=== PATIENT | male | born 1955 | race Caucasian/White ===

== ENCOUNTER 2017-08-27 12:11 | Inpatient (IN) | payer MEDICAID ==
[~2017-08-27] VITALS: Ht 182.9 cm; Wt 106.8 kg
[~2017-08-27 12:11] MED LIST: METH10OR2 PO
[2017-08-27 13:04] LABS: BASOPHILS % (AUTO) 0.3 % (0.0-2.0); EOSINOPHILS % (AUTO) 1.8 % (1.0-6.0); HEMATOCRIT 35.4 % (41-53); HEMOGLOBIN 12.1 g/dL (13.5-17.5); LYMPHOCYTES # (AUTO) 1.9 K/uL (1.0-4.8); MEAN CORPUSCULAR HEMOGLOBIN 30.2 pg (26.0-34.0); MEAN CORPUSCULAR HGB CONC 34.2 G/dL (31.0-37.0); MEAN CORPUSCULAR VOLUME 88 fL (80-100); MONOCYTES # (AUTO) 0.4 K/uL (0.1-1.0); MONOCYTES % (AUTO) 5.2 % (2.0-9.0); NEUTROPHILS # (AUTO) 5.4 K/uL (1.8-7.7); NEUTROPHILS % (AUTO) 68.7 % (40.0-70.0); PLATELET COUNT (AUTO) 159 K/uL (150-450); RED BLOOD CELL COUNT(AUTO) 4.01 MIL/uL (4.50-5.90); RED CELL DISTRIBUTION WIDTH 15.2 % (11.5-14.5); WHITE BLOOD COUNT (AUTO) 7.8 K/uL (4.5-11.0)
[2017-08-27 13:05] LABS: ANION GAP 5 mmol/L (8-16); CALCIUM, TOTAL 8.6 mg/dL (8.8-10.5); CARBON DIOXIDE 29 mmol/L (22-29); CHLORIDE 102 mmol/L (98-107); CREATININE 1.14 mg/dL (0.60-1.30); GLOMERULAR FILTR. RATE CALC > 60 mL/min (>60); POTASSIUM 3.9 mmol/L (3.5-5.1); SODIUM SERUM 136 mmol/L (136-145); UREA NITROGEN, BLOOD 19 mg/dL (7-18)
[2017-08-27 13:11] LABS: ALANINE AMINOTRANSFERASE 28 U/L (12-78); ASPARTATE AMINOTRANSFERASE 28 U/L (15-37); BILIRUBIN,TOTAL 0.3 mg/dL (0.1-1.0); TOTAL PROTEIN, SERUM 7.6 g/dL (6.4-8.2)
[2017-08-27 13:13] LABS: LACTIC ACID 1.8 mmol/L (0.4-2.0)
[2017-08-27] MEDS ORDERED: BUPIVACAINE HCL/PF 0.25% 10 ML VIAL INJ ONE (13:30)
[2017-08-27] MEDS ORDERED: VANCOMYCIN HCL 1 GM/D5% WATER 200 ML IV ONE ×2 (13:30→22:00)
[2017-08-27] MEDS ORDERED: ACETAMINOPHEN 325 MG TABLET PO PRN ×2 (13:30→15:15)
[2017-08-27] MEDS ORDERED: ONDANSETRON HCL 4 MG/2 ML VIAL IVP PRN ×2 (13:30→15:15)
[2017-08-27] MEDS ORDERED: POVIDONE-IODINE 10% 15 ML SOLUTION UD TP ONE (13:30)
[2017-08-27 14:40] VITALS: BP 141/61
[2017-08-27] MEDS ORDERED: BISACODYL 10 MG RECTAL RECTAL SUPPOSITORY PR PRN (15:15)
[2017-08-27] MEDS ORDERED: MAGNESIUM HYDROXIDE SUSPENSION 30 ML UDCUP PO PRN (15:15)
[2017-08-27] MEDS ORDERED: MORPHINE SULFATE 2 MG/ML SYRINGE IVP PRN (15:15)
[2017-08-27] MEDS: HEPARIN SODIUM,PORCINE 5,000 UNITS/ML VIAL SQ SCH (15:49)
[2017-08-27 19:51] VITALS: BP 138/74
[2017-08-27] MEDS: ZOLPIDEM TARTRATE 5 MG TABLET PO PRN (19:58)
[2017-08-27] MEDS: DOCUSATE SODIUM 100 MG CAPSULE PO SCH (22:19)
[2017-08-27 23:40] VITALS: BP 136/58
[2017-08-28] MEDS: HEPARIN SODIUM,PORCINE 5,000 UNITS/ML VIAL SQ SCH ×4 (00:13→23:23)
[2017-08-28 06:06] VITALS: BP 129/70
[2017-08-28 06:21] LABS: ANION GAP 5 mmol/L (8-16); CALCIUM, TOTAL 8.4 mg/dL (8.8-10.5); CARBON DIOXIDE 31 mmol/L (22-29); CHLORIDE 104 mmol/L (98-107); CREATININE 0.97 mg/dL (0.60-1.30); GLOMERULAR FILTR. RATE CALC > 60 mL/min (>60); SODIUM SERUM 140 mmol/L (136-145); UREA NITROGEN, BLOOD 18 mg/dL (7-18)
[2017-08-28 07:32] VITALS: BP 126/67
[2017-08-28] MEDS ORDERED: VANCOMYCIN HCL 1.25 GM in DEXTROSE 5%-WATER 250 ML IV SCH (08:00)
[2017-08-28] MEDS: VANCOMYCIN HCL 1.5 GM in DEXTROSE 5%-WATER 250 ML IV SCH ×2 (08:22→20:37)
[2017-08-28] MEDS: DOCUSATE SODIUM 100 MG CAPSULE PO SCH ×2 (08:22→20:37)
[2017-08-28] MEDS: PANTOPRAZOLE SODIUM 40 MG DR TABLET PO SCH (08:26)
[2017-08-28 11:34] VITALS: BP 120/66
[2017-08-28 16:01] VITALS: BP 134/68
[2017-08-28 19:10] VITALS: BP 131/76
[2017-08-28] MEDS: HYDROCODONE/ACETAMINOPHEN 5-325 MG TABLET PO PRN (20:38)
[2017-08-28 23:08] VITALS: BP 128/70
[2017-08-28] MEDS: ZOLPIDEM TARTRATE 5 MG TABLET PO PRN (23:36)
[2017-08-29 04:00] VITALS: BP 125/70
[2017-08-29 07:04] LABS: ANION GAP 4 mmol/L (8-16); CALCIUM, TOTAL 8.6 mg/dL (8.8-10.5); CARBON DIOXIDE 31 mmol/L (22-29); CHLORIDE 105 mmol/L (98-107); CREATININE 1.01 mg/dL (0.60-1.30); GLOMERULAR FILTR. RATE CALC > 60 mL/min (>60); POTASSIUM 4.8 mmol/L (3.5-5.1); SODIUM SERUM 140 mmol/L (136-145); UREA NITROGEN, BLOOD 18 mg/dL (7-18)
[2017-08-29 08:03] VITALS: BP 128/69
[2017-08-29] MEDS: HEPARIN SODIUM,PORCINE 5,000 UNITS/ML VIAL SQ SCH ×3 (08:19→23:11)
[2017-08-29] MEDS: VANCOMYCIN HCL 1.5 GM in DEXTROSE 5%-WATER 250 ML IV SCH ×2 (08:19→20:04)
[2017-08-29] MEDS: DOCUSATE SODIUM 100 MG CAPSULE PO SCH ×2 (08:20→20:04)
[2017-08-29] MEDS: PANTOPRAZOLE SODIUM 40 MG DR TABLET PO SCH (08:20)
[2017-08-29 12:05] VITALS: BP 128/79
[2017-08-29 15:00] VITALS: BP 124/72
[2017-08-29] MEDS: HYDROCODONE/ACETAMINOPHEN 5-325 MG TABLET PO PRN ×2 (15:54→21:10)
[2017-08-29 20:03] VITALS: BP 130/71
[2017-08-29] MEDS: ZOLPIDEM TARTRATE 5 MG TABLET PO PRN (21:10)
[2017-08-29 23:15] VITALS: BP 136/68
[2017-08-30] MEDS: HYDROCODONE/ACETAMINOPHEN 5-325 MG TABLET PO PRN ×2 (01:16→19:45)
[2017-08-30 05:25] VITALS: BP 130/71
[2017-08-30 06:03] LABS: ANION GAP 4 mmol/L (8-16); CALCIUM, TOTAL 8.8 mg/dL (8.8-10.5); CARBON DIOXIDE 31 mmol/L (22-29); CHLORIDE 104 mmol/L (98-107); CREATININE 1.05 mg/dL (0.60-1.30); GLOMERULAR FILTR. RATE CALC > 60 mL/min (>60); POTASSIUM 4.5 mmol/L (3.5-5.1); SODIUM SERUM 139 mmol/L (136-145); UREA NITROGEN, BLOOD 18 mg/dL (7-18)
[2017-08-30 07:38] VITALS: BP 127/71
[2017-08-30] MEDS: HEPARIN SODIUM,PORCINE 5,000 UNITS/ML VIAL SQ SCH ×3 (08:12→23:35)
[2017-08-30] MEDS: VANCOMYCIN HCL 1.5 GM in DEXTROSE 5%-WATER 250 ML IV SCH ×2 (08:12→19:46)
[2017-08-30] MEDS: PANTOPRAZOLE SODIUM 40 MG DR TABLET PO SCH (08:13)
[2017-08-30] MEDS: DOCUSATE SODIUM 100 MG CAPSULE PO SCH ×2 (08:13→19:45)
[2017-08-30 11:04] VITALS: BP 121/64
[2017-08-30 19:40] VITALS: BP 111/62
[2017-08-30] MEDS: ZOLPIDEM TARTRATE 5 MG TABLET PO PRN (21:37)
[2017-08-30 23:04] VITALS: BP 129/69
[2017-08-31 04:00] VITALS: BP 130/63
[2017-08-31] MEDS: HYDROCODONE/ACETAMINOPHEN 5-325 MG TABLET PO PRN ×2 (04:10→20:20)
[2017-08-31 06:57] LABS: BASOPHILS # (AUTO) 0.02 K/uL (0.00-0.20); BASOPHILS % (AUTO) 0.3 % (0.0-2.0); EOSINOPHILS # (AUTO) 0.18 K/uL (0.00-0.70); EOSINOPHILS % (AUTO) 2.75 % (1.0-6.0); HEMATOCRIT 35.9 % (41-53); HEMOGLOBIN 11.8 g/dL (13.5-17.5); LYMPHOCYTES # (AUTO) 2.1 K/uL (1.0-4.8); LYMPHOCYTES % (AUTO) 32.7 % (22.0-44.0); MEAN CORPUSCULAR HEMOGLOBIN 29.8 pg (26.0-34.0); MEAN CORPUSCULAR HGB CONC 32.9 G/dL (31.0-37.0); MEAN CORPUSCULAR VOLUME 91 fL (80-100); MONOCYTES # (AUTO) 0.5 K/uL (0.1-1.0); MONOCYTES % (AUTO) 6.8 % (2.0-9.0); NEUTROPHILS # (AUTO) 3.8 K/uL (1.8-7.7); NEUTROPHILS % (AUTO) 57.4 % (40.0-70.0); PLATELET COUNT (AUTO) 141 K/uL (150-450); RED BLOOD CELL COUNT(AUTO) 3.96 MIL/uL (4.50-5.90); RED CELL DISTRIBUTION WIDTH 15.1 % (11.5-14.5); WHITE BLOOD COUNT (AUTO) 6.6 K/uL (4.5-11.0)
[2017-08-31 07:02] VITALS: BP 110/74
[2017-08-31 07:07] LABS: ANION GAP 3 mmol/L (8-16); CARBON DIOXIDE 33 mmol/L (22-29); CHLORIDE 101 mmol/L (98-107); CREATININE 1.17 mg/dL (0.60-1.30); GLOMERULAR FILTR. RATE CALC > 60 mL/min (>60); POTASSIUM 4.3 mmol/L (3.5-5.1); SODIUM SERUM 137 mmol/L (136-145); UREA NITROGEN, BLOOD 20 mg/dL (7-18)
[2017-08-31] MEDS: PANTOPRAZOLE SODIUM 40 MG DR TABLET PO SCH (09:11)
[2017-08-31] MEDS: VANCOMYCIN HCL 1.5 GM in DEXTROSE 5%-WATER 250 ML IV SCH ×2 (09:11→20:19)
[2017-08-31] MEDS: HEPARIN SODIUM,PORCINE 5,000 UNITS/ML VIAL SQ SCH ×3 (09:12→23:22)
[2017-08-31] MEDS: DOCUSATE SODIUM 100 MG CAPSULE PO SCH ×2 (09:12→20:19)
[2017-08-31 11:13] VITALS: BP 130/69
[2017-08-31 16:17] VITALS: BP 127/75
[2017-08-31 19:46] VITALS: BP 124/68
[2017-08-31 23:29] VITALS: BP 111/64
[2017-09-01 04:00] VITALS: BP 114/65
[2017-09-01 06:45] LABS: BASOPHILS % (AUTO) 0.4 % (0.0-2.0); EOSINOPHILS % (AUTO) 2.5 % (1.0-6.0); HEMOGLOBIN 11.4 g/dL (13.5-17.5); LYMPHOCYTES # (AUTO) 1.9 K/uL (1.0-4.8); LYMPHOCYTES % (AUTO) 37.3 % (22.0-44.0); MEAN CORPUSCULAR HEMOGLOBIN 29.9 pg (26.0-34.0); MEAN CORPUSCULAR HGB CONC 33.6 G/dL (31.0-37.0); MEAN CORPUSCULAR VOLUME 89 fL (80-100); MONOCYTES # (AUTO) 0.3 K/uL (0.1-1.0); MONOCYTES % (AUTO) 4.9 % (2.0-9.0); NEUTROPHILS # (AUTO) 2.8 K/uL (1.8-7.7); NEUTROPHILS % (AUTO) 54.9 % (40.0-70.0); PLATELET COUNT (AUTO) 141 K/uL (150-450); RED BLOOD CELL COUNT(AUTO) 3.82 MIL/uL (4.50-5.90); RED CELL DISTRIBUTION WIDTH 14.6 % (11.5-14.5); WHITE BLOOD COUNT (AUTO) 5.1 K/uL (4.5-11.0)
[2017-09-01 07:12] LABS: ANION GAP 2 mmol/L (8-16); CARBON DIOXIDE 34 mmol/L (22-29); CHLORIDE 102 mmol/L (98-107); CREATININE 1.17 mg/dL (0.60-1.30); GLOMERULAR FILTR. RATE CALC > 60 mL/min (>60); POTASSIUM 4.5 mmol/L (3.5-5.1); SODIUM SERUM 138 mmol/L (136-145); UREA NITROGEN, BLOOD 23 mg/dL (7-18)
[2017-09-01 07:34] VITALS: BP 121/66
[2017-09-01] MEDS: PANTOPRAZOLE SODIUM 40 MG DR TABLET PO SCH (08:39)
[2017-09-01] MEDS: DOCUSATE SODIUM 100 MG CAPSULE PO SCH (08:39)
[2017-09-01] MEDS: HEPARIN SODIUM,PORCINE 5,000 UNITS/ML VIAL SQ SCH (08:40)
[2017-09-01 11:12] VITALS: BP 124/62
[2017-09-01] MEDS ORDERED: CEPH250S PO (11:35)
[2017-09-01] MEDS ORDERED: SULF1TAB42 PO (11:36)
[2017-09-01] MEDS ORDERED: TRAM50TA2 PO ×2 (11:38)
== END 2017-09-01 12:52 | disposition home or self-care (01) | DRG 364 ==
LOC: EMS 12:11 → 6N 14:03
PROVIDERS: ADMIT Internal Medicine; ATTEND Internal Medicine
PROC: 0J9N0ZZ Drainage of Right Lower Leg Subcutaneous Tissue and Fascia, Open Approach (ICD-10-PCS; principal; 2017-08-27)
DX: L03.115 Cellulitis of right lower limb (principal); E44.0 Moderate protein-calorie malnutrition; L02.415 Cutaneous abscess of right lower limb; F11.10 Opioid abuse, uncomplicated; D64.9 Anemia, unspecified; R73.9 Hyperglycemia, unspecified; Z60.2 Problems related to living alone; F17.210 Nicotine dependence, cigarettes, uncomplicated; Z68.31 Body mass index [BMI] 31.0-31.9, adult
CPT/HCPCS: 83605; 87040; 96365; 99285; J1644; J3370; J3490; J7060

== ENCOUNTER 2018-05-15 23:47 | Emergency (ER) | payer MEDICAID ==
[~2018-05-15] VITALS: Ht 182.9 cm; Wt 109.1 kg
[~2018-05-15 23:47] MED LIST changes: +CEPH250S PO; +SULF1TAB42 PO; +TRAM50TA2 PO
[2018-05-16] MEDS ORDERED: CEPHALEXIN MONOHYDRATE 500 MG CAPSULE PO ONE (02:30)
[2018-05-16] MEDS ORDERED: SULFAMETHOX/TRIMETH DS 800-160 MG/TABLET PO ONE (02:30)
[2018-05-16 02:41] VITALS: BP 154/70
[2018-05-16 03:01] LABS: BASOPHILS % (AUTO) 0.1 % (0.0-2.0); EOSINOPHILS % (AUTO) 0.4 % (1.0-6.0); HEMATOCRIT 35.7 % (41-53); HEMOGLOBIN 12.2 g/dL (13.5-17.5); LYMPHOCYTES % (AUTO) 18.7 % (22.0-44.0); MEAN CORPUSCULAR HGB CONC 34.2 G/dL (31.0-37.0); MEAN CORPUSCULAR VOLUME 85 fL (80-100); MONOCYTES # (AUTO) 0.7 K/uL (0.1-1.0); MONOCYTES % (AUTO) 6.2 % (2.0-9.0); NEUTROPHILS % (AUTO) 74.6 % (40.0-70.0); PLATELET COUNT (AUTO) 124 K/uL (150-450); RED BLOOD CELL COUNT(AUTO) 4.22 MIL/uL (4.50-5.90); RED CELL DISTRIBUTION WIDTH 16.2 % (11.5-14.5)
[2018-05-16 03:11] LABS: ANION GAP 6 mmol/L (8-16); CARBON DIOXIDE 30 mmol/L (22-29); CHLORIDE 99 mmol/L (98-107); CREATININE 1.06 mg/dL (0.60-1.30); GLOMERULAR FILTR. RATE CALC > 60 mL/min (>60); GLUCOSE,RANDOM 126 mg/dL (70-110); POTASSIUM 3.6 mmol/L (3.5-5.1); SODIUM SERUM 135 mmol/L (136-145); UREA NITROGEN, BLOOD 19 mg/dL (7-18)
[2018-05-16 03:17] LABS: ALANINE AMINOTRANSFERASE 32 U/L (12-78); ALBUMIN 3.1 g/dL (3.4-5.0); ALKALINE PHOSPHATASE 109 U/L (46-116); ASPARTATE AMINOTRANSFERASE 22 U/L (15-37); BILIRUBIN,TOTAL 0.8 mg/dL (0.1-1.0)
== END 2018-05-16 03:30 | disposition home or self-care (01) ==
LOC: EMS 23:48
DX: L03.116 Cellulitis of left lower limb (principal); M79.89 Other specified soft tissue disorders; F17.210 Nicotine dependence, cigarettes, uncomplicated; F11.90 Opioid use, unspecified, uncomplicated
CPT/HCPCS: 99284

== ENCOUNTER 2018-06-08 20:04 | Emergency (ER) | payer MEDICAID ==
[~2018-06-08] VITALS: Ht 182.9 cm; Wt 109.1 kg
[~2018-06-08 20:04] MED LIST changes: -CEPH250S PO; -SULF1TAB42 PO; -TRAM50TA2 PO
[2018-06-08 22:45] LABS: BASOPHILS % (AUTO) 0.2 % (0.0-2.0); EOSINOPHILS % (AUTO) 2.8 % (1.0-6.0); HEMATOCRIT 33.4 % (41-53); HEMOGLOBIN 11.1 g/dL (13.5-17.5); LYMPHOCYTES # (AUTO) 1.8 K/uL (1.0-4.8); LYMPHOCYTES % (AUTO) 25.4 % (22.0-44.0); MEAN CORPUSCULAR HEMOGLOBIN 28.3 pg (26.0-34.0); MEAN CORPUSCULAR HGB CONC 33.2 G/dL (31.0-37.0); MEAN CORPUSCULAR VOLUME 85 fL (80-100); MONOCYTES # (AUTO) 0.7 K/uL (0.1-1.0); MONOCYTES % (AUTO) 9.7 % (2.0-9.0); NEUTROPHILS # (AUTO) 4.3 K/uL (1.8-7.7); NEUTROPHILS % (AUTO) 61.9 % (40.0-70.0); PLATELET COUNT (AUTO) 157 K/uL (150-450); RED BLOOD CELL COUNT(AUTO) 3.91 MIL/uL (4.50-5.90); RED CELL DISTRIBUTION WIDTH 15.1 % (11.5-14.5)
[2018-06-08 22:56] LABS: CALCIUM, TOTAL 8.8 mg/dL (8.8-10.5); CREATININE 1.32 mg/dL (0.60-1.30); POTASSIUM 3.7 mmol/L (3.5-5.1)
[2018-06-08 23:02] LABS: ALBUMIN 2.7 g/dL (3.4-5.0); BILIRUBIN,TOTAL 0.4 mg/dL (0.1-1.0); TOTAL PROTEIN, SERUM 7.7 g/dL (6.4-8.2)
[2018-06-09 02:17] VITALS: BP 114/76
== END 2018-06-09 02:34 | disposition home or self-care (01) ==
LOC: EMS 20:05
DX: L03.116 Cellulitis of left lower limb (principal); L03.115 Cellulitis of right lower limb; F11.10 Opioid abuse, uncomplicated; F17.210 Nicotine dependence, cigarettes, uncomplicated; Z79.899 Other long term (current) drug therapy; Z98.890 Other specified postprocedural states
CPT/HCPCS: 99284

== ENCOUNTER 2018-07-31 18:39 | Emergency (ER) | payer MEDICAID | END 2018-07-31 19:53 | disposition left against medical advice (07) | LOC: EMS 18:40 | DX: M25.569 Pain in unspecified knee (principal); Z53.21 Procedure and treatment not carried out due to patient leaving prior to being seen by health care provider ==

== ENCOUNTER 2018-08-01 14:54 | Emergency (ER) | payer MEDICAID ==
[~2018-08-01] VITALS: Ht 182.9 cm; Wt 111.4 kg
[2018-08-01 14:57] VITALS: BP 143/76
== END 2018-08-01 18:30 | disposition left against medical advice (07) ==
LOC: EMS 14:55
DX: M25.561 Pain in right knee (principal); M25.562 Pain in left knee; M79.89 Other specified soft tissue disorders; F17.210 Nicotine dependence, cigarettes, uncomplicated; F11.90 Opioid use, unspecified, uncomplicated; Z53.21 Procedure and treatment not carried out due to patient leaving prior to being seen by health care provider

== ENCOUNTER 2018-08-02 03:27 | Emergency (ER) | payer MEDICAID ==
[~2018-08-02] VITALS: Ht 185.4 cm; Wt 111.4 kg
[2018-08-02 07:12] VITALS: BP 133/78
== END 2018-08-02 07:17 | disposition home or self-care (01) ==
LOC: EMS 03:28
DX: L03.115 Cellulitis of right lower limb (principal); F17.210 Nicotine dependence, cigarettes, uncomplicated; F11.90 Opioid use, unspecified, uncomplicated; Z79.899 Other long term (current) drug therapy
CPT/HCPCS: 99283

== ENCOUNTER 2019-05-16 16:36 | Emergency (ER) | payer MEDICAID ==
[~2019-05-16] VITALS: Ht 182.9 cm; Wt 109.1 kg
[2019-05-16] MEDS ORDERED: 0.9% SODIUM CHLORIDE 10 ML SYRINGE IVP PRN (17:30)
[2019-05-16 17:44] LABS: BASOPHILS % (AUTO) 0.4 % (0.0-2.0); EOSINOPHILS % (AUTO) 0.9 % (1.0-6.0); HEMATOCRIT 38.9 % (41-53); HEMOGLOBIN 12.4 g/dL (13.5-17.5); LYMPHOCYTES # (AUTO) 2.5 K/uL (1.0-4.8); MEAN CORPUSCULAR HEMOGLOBIN 28.4 pg (26.0-34.0); MEAN CORPUSCULAR HGB CONC 31.9 G/dL (31.0-37.0); MEAN CORPUSCULAR VOLUME 89 fL (80-100); MONOCYTES # (AUTO) 0.7 K/uL (0.1-1.0); MONOCYTES % (AUTO) 6.8 % (2.0-9.0); NEUTROPHILS # (AUTO) 6.7 K/uL (1.8-7.7); NEUTROPHILS % (AUTO) 66.9 % (40.0-70.0); PLATELET COUNT (AUTO) 230 K/uL (150-450); RED BLOOD CELL COUNT(AUTO) 4.37 MIL/uL (4.50-5.90); RED CELL DISTRIBUTION WIDTH 14.6 % (11.5-14.5)
[2019-05-16 18:02] LABS: LACTIC ACID 1.5 mmol/L (0.4-2.0)
[2019-05-16 18:07] LABS: CALCIUM, TOTAL 9.7 mg/dL (8.8-10.5); CREATININE 1.48 mg/dL (0.60-1.30); POTASSIUM 4.6 mmol/L (3.5-5.1)
[2019-05-16 18:11] LABS: BILIRUBIN,TOTAL 0.5 mg/dL (0.1-1.0)
[2019-05-16 19:15] LABS: APPEARANCE,URINE CLEAR (CLEAR); BILIRUBIN,URINE NEGATIVE (NEGATIVE); GLUCOSE, URINE (UA) NEGATIVE (NEGATIVE); KETONES,URINE NEGATIVE (NEGATIVE); LEUKOCYTE ESTERASE ,URINE NEGATIVE (NEGATIVE); NITRATE,URINE NEGATIVE (NEGATIVE); OCCULT BLOOD,URINE LARGE (NEGATIVE); PROTEIN,URINE TRACE (NEGATIVE); UROBILINOGEN,URINE 0.2 mg/dL (<=1.0)
[2019-05-16 19:33] LABS: WBC,URINE 0-2 /HPF (0-5)
[2019-05-16 19:34] LABS: BACTERIA,URINE Rare /HPF (None Seen); SQUAMOUS EPITHELIAL CELL,UR Few /LPF (None Seen)
[2019-05-16] MEDS ORDERED: LIDOCAINE 2%/EPI 1:200,000/PF 10 ML VIAL INJ ONE (20:15)
[2019-05-16 20:30] VITALS: BP 138/65
== END 2019-05-16 21:28 | disposition left against medical advice (07) ==
LOC: EMS 16:38
DX: L02.416 Cutaneous abscess of left lower limb (principal); L03.116 Cellulitis of left lower limb; F17.210 Nicotine dependence, cigarettes, uncomplicated; F11.90 Opioid use, unspecified, uncomplicated
CPT/HCPCS: 10060; 83605; 87040; 93005

== ENCOUNTER 2019-07-31 08:26 | Inpatient (IN) | payer MEDICAID ==
[~2019-07-31] VITALS: Ht 182.9 cm; Wt 109.1 kg
[2019-07-31] MEDS ORDERED: VANCOMYCIN HCL 1 GM/D5% WATER 200 ML IV ONE ×2 (09:45→11:30)
[2019-07-31 09:47] LABS: BASOPHILS % (AUTO) 0.4 % (0.0-2.0); EOSINOPHILS % (AUTO) 2.4 % (1.0-6.0); HEMATOCRIT 32.4 % (41-53); HEMOGLOBIN 10.8 g/dL (13.5-17.5); LYMPHOCYTES # (AUTO) 2.4 K/uL (1.0-4.8); LYMPHOCYTES % (AUTO) 29.8 % (22.0-44.0); MEAN CORPUSCULAR HEMOGLOBIN 28.3 pg (26.0-34.0); MEAN CORPUSCULAR HGB CONC 33.4 G/dL (31.0-37.0); MEAN CORPUSCULAR VOLUME 85 fL (80-100); MONOCYTES # (AUTO) 0.7 K/uL (0.1-1.0); MONOCYTES % (AUTO) 8.3 % (2.0-9.0); NEUTROPHILS # (AUTO) 4.8 K/uL (1.8-7.7); NEUTROPHILS % (AUTO) 59.1 % (40.0-70.0); PLATELET COUNT (AUTO) 170 K/uL (150-450); RED BLOOD CELL COUNT(AUTO) 3.82 MIL/uL (4.50-5.90)
[2019-07-31 10:03] LABS: ALBUMIN 2.4 g/dL (3.4-5.0); BILIRUBIN,TOTAL 0.4 mg/dL (0.1-1.0); CALCIUM, TOTAL 8.6 mg/dL (8.8-10.5); CREATININE 1.23 mg/dL (0.60-1.30); POTASSIUM 3.9 mmol/L (3.5-5.1); TOTAL PROTEIN, SERUM 7.7 g/dL (6.4-8.2)
[2019-07-31 10:06] LABS: LACTIC ACID 0.8 mmol/L (0.4-2.0)
[2019-07-31] MEDS ORDERED: DOCUSATE SODIUM 100 MG CAPSULE PO PRN (10:30)
[2019-07-31] MEDS ORDERED: ACETAMINOPHEN 325 MG TABLET PO PRN (10:30)
[2019-07-31] MEDS ORDERED: MAGNESIUM HYDROXIDE SUSPENSION 30 ML UDCUP PO PRN (10:30)
[2019-07-31] MEDS ORDERED: OxyCODONE HCL/ACETAMINOPHEN 5-325 MG TABLET PO PRN (10:30)
[2019-07-31] MEDS ORDERED: IOVERSOL 350 MG/ML 150 ML VIAL ONE (10:52)
[2019-07-31] MEDS ORDERED: SODIUM CHLORIDE 0.9% 100 ML ONE (10:52)
[2019-07-31] MEDS: MULTIVITAMINS WITH MINERALS, THERAPEUTIC TABLET PO SCH (11:05)
[2019-07-31] MEDS: OxyCODONE HCL/ACETAMINOPHEN 5-325 MG TABLET PO PRN (12:26)
[2019-07-31 15:06] VITALS: BP 117/74
[2019-07-31] MEDS: HEPARIN SODIUM,PORCINE 5,000 UNITS/ML VIAL SQ SCH ×2 (15:33→23:44)
[2019-07-31] MEDS ORDERED: INFLUENZA VIRUS VACCINE QVS 2019-20 (3YR+)/PF 60 MCG/0.5 ML SYRINGE IM ONE (18:00)
[2019-07-31 19:45] VITALS: BP 122/71
[2019-07-31] MEDS ORDERED: SODIUM CHLORIDE 0.9% 500 ML IV ONE (20:31)
[2019-07-31] MEDS: VANCOMYCIN HCL 1 GM/D5% WATER 200 ML IV SCH (20:43)
[2019-07-31 23:30] VITALS: BP 110/65
[2019-08-01 05:00] VITALS: BP 111/70
[2019-08-01 07:45] VITALS: BP 112/66
[2019-08-01] MEDS: VANCOMYCIN HCL 1 GM/D5% WATER 200 ML IV SCH ×2 (08:27→19:55)
[2019-08-01] MEDS: MULTIVITAMINS WITH MINERALS, THERAPEUTIC TABLET PO SCH (08:27)
[2019-08-01] MEDS: ASPIRIN 81 MG CHEWABLE TABLET PO SCH (08:27)
[2019-08-01] MEDS: HEPARIN SODIUM,PORCINE 5,000 UNITS/ML VIAL SQ SCH ×2 (09:49→15:27)
[2019-08-01 11:58] VITALS: BP 120/68
[2019-08-01] MEDS: METHADONE HCL 10 MG TABLET PO SCH (13:40)
[2019-08-01] MEDS: PIPERACILLIN/TAZO 3.375 GM/D5W 50 ML IV SCH ×2 (13:44→18:01)
[2019-08-01 15:15] VITALS: BP 112/70
[2019-08-01 19:40] VITALS: BP 116/68
[2019-08-01] MEDS: OxyCODONE HCL/ACETAMINOPHEN 5-325 MG TABLET PO PRN (19:54)
[2019-08-01 20:26] VITALS: BP 107/72
[2019-08-02] VITALS (7 sets, daily range): BP systolic 116–144; BP diastolic 63–79
[2019-08-02] MEDS: HEPARIN SODIUM,PORCINE 5,000 UNITS/ML VIAL SQ SCH ×3 (00:06→15:29)
[2019-08-02] MEDS: PIPERACILLIN/TAZO 3.375 GM/D5W 50 ML IV SCH ×4 (00:06→18:49)
[2019-08-02 05:48] LABS: BASOPHILS % (AUTO) 0.3 % (0.0-2.0); EOSINOPHILS % (AUTO) 3.4 % (1.0-6.0); HEMATOCRIT 32.2 % (41-53); HEMOGLOBIN 10.5 g/dL (13.5-17.5); LYMPHOCYTES # (AUTO) 1.8 K/uL (1.0-4.8); MEAN CORPUSCULAR HEMOGLOBIN 27.7 pg (26.0-34.0); MEAN CORPUSCULAR HGB CONC 32.7 G/dL (31.0-37.0); MEAN CORPUSCULAR VOLUME 85 fL (80-100); MONOCYTES # (AUTO) 0.3 K/uL (0.1-1.0); NEUTROPHILS # (AUTO) 2.6 K/uL (1.8-7.7); NEUTROPHILS % (AUTO) 53.3 % (40.0-70.0); PLATELET COUNT (AUTO) 162 K/uL (150-450); RED CELL DISTRIBUTION WIDTH 15.1 % (11.5-14.5)
[2019-08-02 06:01] LABS: ANION GAP 3 mmol/L (8-16); CALCIUM, TOTAL 9.1 mg/dL (8.8-10.5); CARBON DIOXIDE 34 mmol/L (22-29); CHLORIDE 103 mmol/L (98-107); CREATININE 1.12 mg/dL (0.60-1.30); GLOMERULAR FILTR. RATE CALC > 60 mL/min (>60); GLUCOSE,RANDOM 83 mg/dL (70-110); POTASSIUM 4.6 mmol/L (3.5-5.1); SODIUM SERUM 140 mmol/L (136-145); UREA NITROGEN, BLOOD 19 mg/dL (7-18); VANCOMYCIN,RANDOM 21.4 mcg/mL (25.0-50.0)
[2019-08-02] MEDS: METHADONE HCL 10 MG TABLET PO SCH (08:11)
[2019-08-02] MEDS: MULTIVITAMINS WITH MINERALS, THERAPEUTIC TABLET PO SCH (08:11)
[2019-08-02] MEDS: ASPIRIN 81 MG CHEWABLE TABLET PO SCH (08:12)
[2019-08-02] MEDS: VANCOMYCIN HCL 1 GM/D5% WATER 200 ML IV SCH ×2 (08:48→20:47)
[2019-08-03] MEDS: HEPARIN SODIUM,PORCINE 5,000 UNITS/ML VIAL SQ SCH ×3 (00:09→16:32)
[2019-08-03] MEDS: PIPERACILLIN/TAZO 3.375 GM/D5W 50 ML IV SCH ×4 (00:09→18:32)
[2019-08-03 04:36] VITALS: BP 138/78
[2019-08-03 06:39] LABS: ANION GAP 5 mmol/L (8-16); CALCIUM, TOTAL 8.7 mg/dL (8.8-10.5); CARBON DIOXIDE 31 mmol/L (22-29); CHLORIDE 103 mmol/L (98-107); CREATININE 1.18 mg/dL (0.60-1.30); GLOMERULAR FILTR. RATE CALC > 60 mL/min (>60); GLUCOSE,RANDOM 70 mg/dL (70-110); POTASSIUM 4.8 mmol/L (3.5-5.1); SODIUM SERUM 139 mmol/L (136-145); UREA NITROGEN, BLOOD 19 mg/dL (7-18)
[2019-08-03 07:07] VITALS: BP 132/75
[2019-08-03] MEDS: MULTIVITAMINS WITH MINERALS, THERAPEUTIC TABLET PO SCH (08:13)
[2019-08-03] MEDS: ASPIRIN 81 MG CHEWABLE TABLET PO SCH (08:13)
[2019-08-03] MEDS: VANCOMYCIN HCL 1 GM/D5% WATER 200 ML IV SCH ×2 (08:13→20:15)
[2019-08-03] MEDS: METHADONE HCL 10 MG TABLET PO SCH (08:14)
[2019-08-03 11:28] VITALS: BP 128/70
[2019-08-03 15:00] VITALS: BP 126/92
[2019-08-03 20:08] VITALS: BP 128/61
[2019-08-03] MEDS: OxyCODONE HCL/ACETAMINOPHEN 5-325 MG TABLET PO PRN (20:14)
[2019-08-03 23:19] VITALS: BP 111/61
[2019-08-04] MEDS: HEPARIN SODIUM,PORCINE 5,000 UNITS/ML VIAL SQ SCH ×2 (00:35→08:39)
[2019-08-04] MEDS: PIPERACILLIN/TAZO 3.375 GM/D5W 50 ML IV SCH (00:35)
[2019-08-04 04:00] VITALS: BP 119/79
[2019-08-04 05:47] LABS: CREATININE 1.28 mg/dL (0.60-1.30); POTASSIUM 4.7 mmol/L (3.5-5.1)
[2019-08-04 08:14] VITALS: BP 123/62
[2019-08-04] MEDS: METHADONE HCL 10 MG TABLET PO SCH (08:36)
[2019-08-04] MEDS: MULTIVITAMINS WITH MINERALS, THERAPEUTIC TABLET PO SCH (08:37)
[2019-08-04] MEDS: ASPIRIN 81 MG CHEWABLE TABLET PO SCH (08:37)
[2019-08-04] MEDS: OxyCODONE HCL/ACETAMINOPHEN 5-325 MG TABLET PO PRN (08:38)
[2019-08-04] MEDS: VANCOMYCIN HCL 1 GM/D5% WATER 200 ML IV SCH (08:44)
[2019-08-04] MEDS ORDERED: POTASSIUM CHLORIDE 20 MEQ ER TABLET PO ONE (09:45)
[2019-08-04 11:05] VITALS: BP 138/75
[2019-08-04] MEDS ORDERED: DOXY100C PO (12:14)
== END 2019-08-04 14:40 | disposition home or self-care (01) | DRG 383 ==
LOC: EMS 08:29 → 6N 13:29
PROVIDERS: ADMIT Internal Medicine; ATTEND Internal Medicine
DX: L03.115 Cellulitis of right lower limb (principal); E43 Unspecified severe protein-calorie malnutrition; E66.9 Obesity, unspecified; L03.116 Cellulitis of left lower limb; B19.20 Unspecified viral hepatitis C without hepatic coma; F11.10 Opioid abuse, uncomplicated; Z68.32 Body mass index [BMI] 32.0-32.9, adult; B95.62 Methicillin resistant Staphylococcus aureus infection as the cause of diseases classified elsewhere
CPT/HCPCS: 73701; 83605; 87040; 87070; 87205; 93306; 96365; 97161; 97165; 97535; J1644; J2543; J3370; J7040; J7050

== ENCOUNTER 2020-07-09 09:00 | Emergency (ER) | payer MEDICAID ==
[~2020-07-09] VITALS: Ht 182.9 cm; Wt 104.5 kg
[~2020-07-09 09:00] MED LIST changes: +DOXY100C PO
[2020-07-09 11:02] VITALS: BP 120/65
== END 2020-07-09 10:25 | disposition left against medical advice (07) ==
LOC: EMS 09:00
DX: L03.116 Cellulitis of left lower limb (principal); L03.115 Cellulitis of right lower limb; F17.210 Nicotine dependence, cigarettes, uncomplicated; F11.90 Opioid use, unspecified, uncomplicated; F12.90 Cannabis use, unspecified, uncomplicated
CPT/HCPCS: Z7502

== ENCOUNTER 2023-05-01 14:44 | Emergency (ER) | payer MEDICARE, MEDICAID ==
[~2023-05-01] VITALS: Ht 182.9 cm; Wt 97.7 kg
[~2023-05-01 14:44] MED LIST changes: +CEPH-558 PO; -DOXY100C PO; -METH10OR2 PO
[2023-05-01 15:18] VITALS: TEMP 99
[2023-05-01] MEDS ORDERED: ACETAMINOPHEN 500 MG TABLET PO ONE (15:30)
[2023-05-01 16:10] VITALS: BP 123/68; PULSE 88; RESP 18
== END 2023-05-01 16:37 | disposition home or self-care (01) ==
LOC: EMS 15:10
DX: S09.90XA Unspecified injury of head, initial encounter (principal); E11.9 Type 2 diabetes mellitus without complications; F17.210 Nicotine dependence, cigarettes, uncomplicated; F12.90 Cannabis use, unspecified, uncomplicated; F15.90 Other stimulant use, unspecified, uncomplicated; F11.90 Opioid use, unspecified, uncomplicated; F19.90 Other psychoactive substance use, unspecified, uncomplicated; Z98.890 Other specified postprocedural states; W01.0XXA Fall on same level from slipping, tripping and stumbling without subsequent striking against object, initial encounter; Y93.89 Activity, other specified; Y92.89 Other specified places as the place of occurrence of the external cause; Y99.8 Other external cause status
CPT/HCPCS: 82962; 99282